=== PATIENT | male | born 1985 | race Caucasian/White ===

== ENCOUNTER 2017-10-27 09:36 | Emergency (ER) | payer OTHER ==
--- NOTE | 2017-10-27 09:42 | EDPHY ---
H & P Time Seen by Provider: 10/27/17 09:38 HPI/ROS: CHIEF COMPLAINT: Possible seizure, possible anxiety HISTORY OF PRESENT ILLNESS: 32-year-old male arrives by ambulance from his place of work where his colleagues described seizure like movements in a patient without history of seizure disorder. The coworkers described the patient was coherent during the entire episode they were able to talk to him. The patient describes feeling lightheaded and then feeling shaking and carpal pedal spasms. 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 He denies fall or head injury. He denies alcohol or drug use. REVIEW OF SYSTEMS: A ten point review of systems was performed and is negative with the exception of the items mentioned in the HPI PAST MEDICAL & SURGICAL HISTORY: no seizure disorder history SOCIAL HISTORY: Nonsmoker no drug or alcohol use FAMILY HISTORY: History intracranial hemangioma PHYSICAL EXAM (Prior to examination, patient consented to physical exam, hands were washed and my usual and customary physical exam procedures followed) 1) GENERAL: Well-developed, well-nourished, alert and oriented. Appears to be in no acute distress. 2) HEAD: Normocephalic, atraumatic 3) HEENT: Pupils equal, round, reactive to light bilaterally. Sclera anicteric. Nasopharynx, oropharynx, clear, no lesions. No signs of trauma. Ears bilaterally with normal tympanic membranes. 4) NECK: Full range of motion, no meningeal signs. 5) LUNGS: Clear auscultation bilaterally, no wheezes, no rhonchi, no retractions. 6) HEART: Regular rate and rhythm, no murmur, no heave, no gallop. 7) ABDOMEN: No guarding, no rebound, no focal tenderness, negative McBurney's, negative Nino's, negative Rovsing's, negative peritoneal sign, 8) MUSCULOSKELETAL: Moving all extremities, no focal areas of tenderness, no obvious trauma. No peripheral edema or discoloration. 9) BACK: No CVA tenderness, no midline vertebral tenderness, no fluctuance, no step-off, no obvious trauma, no visual or palpable abnormality. 10) SKIN: No rash, no petechiae. 11) Psychiatric: Patient is oriented X 3, there is no agitation. 12) NEURO: Awake, alert, and oriented to person, place and time. Answers questions appropriately. There were no obvious focal neurologic abnormalities. No cerebellar dysfunction. Cranial nerves 2 through to 12 intact. Normal steady gait. Upper and lower extremities bilaterally with strength 5 / 5, reflexes 2+. DIFFERENTIAL DIAGNOSIS: In no particular order including but not limited to seizure, acute anxiety, cardiac dysrhythmia Constitutional: Initial Vital Signs Temperature (C) 36.5 C 10/27/17 09:41 Heart Rate 57 L 10/27/17 09:41 Respiratory Rate 16 10/27/17 09:41 Blood Pressure 142/90 H 10/27/17 09:41 O2 Sat (%) 96 10/27/17 09:41 O2 Delivery Mode Room Air Allergies/Adverse Reactions: No Known Allergies Allergy (Unverified 10/27/17 09:41) Home Medications: Medication Instructions Recorded NK [No Known Home Meds] 10/27/17 Medical Decision Making - Diagnostics Imaging Results: Imaging Impressions Head CT 10/27/17 10:21 Impression: There is no acute intracranial abnormality identified on this unenhanced CT evaluation. If there is further clinical concern regarding the patient's symptoms, MR imaging is suggested, if not otherwise contraindicated. Findings were discussed with Glenis Leyva PA-C at 11:02 AM, on 10/27/2017. Images reviewed by myself ED Course/Re-evaluation: Patient was re-evaluated with serial examinations most recently at 11:15 a.m. Discussed his diagnostic results. He was particularly concerned about his CT head noting family history of hemangioma. Discussed limitations of CT imaging. He remains with a nonfocal exam. It is not completely clear whether patient had an acute anxiety attack or possible seizure. I have recommended he follow up with Neurology and have given him this follow-up information and have given him my usual customary seizure precautions instructions including but not limited to, no driving or operating machinery. He feels comfortable with this plan. Feels comfortable being discharged. I do not think that hospitalization isn't indicated at this time. Care of patient under supervision of primary supervising physician Dr Lama. - Data Points Laboratory Results: Laboratory Results 10/27/17 09:50 10/27/17 09:50 02/22/18 02/22/18 09:50 09:50 WBC 9.76 10^3/uL H 10^3/uL (3.80-9.50) RBC 5.90 10^6/uL 10^6/uL (4.40-6.38) Hgb 17.9 g/dL H g/dL (13.7-17.5) Hct 52.2 % H % (40.0-51.0) MCV 88.5 fL fL (81.5-99.8) MCH 30.3 pg pg (27.9-34.1) MCHC 34.3 g/dL g/dL (32.4-36.7) RDW 12.8 % % (11.5-15.2) Plt Count 320 10^3/uL 10^3/uL (150-400) MPV 9.5 fL fL (8.7-11.7) Neut % (Auto) 39.8 % % (39.3-74.2) Lymph % (Auto) 46.6 % H % (15.0-45.0) [place] % (Auto) 6.9 % % (4.5-13.0) Eos % (Auto) 5.4 % % (0.6-7.6) Baso % (Auto) 1.0 % % (0.3-1.7) Nucleat RBC Rel Count 0.0 % % (0.0-0.2) Absolute Neuts (auto) 3.88 10^3/uL 10^3/uL (1.70-6.50) Absolute Lymphs (auto) 4.55 10^3/uL H 10^3/uL (1.00-3.00) Absolute Monos (auto) 0.67 10^3/uL 10^3/uL (0.30-0.80) Absolute Eos (auto) 0.53 10^3/uL H 10^3/uL (0.03-0.40) Absolute Basos (auto) 0.10 10^3/uL 10^3/uL (0.02-0.10) Absolute Nucleated RBC 0.00 10^3/uL 10^3/uL (0-0.01) Immature Gran % 0.3 % % (0.0-1.1) Immature Gran # 0.03 10^3/uL 10^3/uL (0.00-0.10) Sodium 144 mEq/L mEq/L (135-145) Potassium 3.9 mEq/L mEq/L (3.5-5.2) Chloride 106 mEq/L mEq/L (97-110) Carbon Dioxide 20 mEq/l L mEq/l (22-31) Anion Gap 18 mEq/L H mEq/L (8-16) BUN 18 mg/dL mg/dL (7-23) Creatinine 1.2 mg/dL mg/dL (0.7-1.3) Estimated GFR > 60 Glucose 102 mg/dL H mg/dL (70-100) Calcium 10.7 mg/dL H mg/dL (8.5-10.4) Phosphorus 1.3 mg/dL L mg/dL (2.5-4.5) Ethyl Alcohol < 10 mg/dL mg/dL (0-10) Departure - Departure Disposition: Home, Routine, Self-Care Clinical Impression: Possible seizure Condition: Good Instructions: Nonepileptic Seizures (ED), Anxiety (ED) Additional Instructions: You may have had a seizure. Until your cleared by the your neurologist do not: Drive, swim alone, climb to heights, operate machinery Referrals: Robert White MD [Medical Doctor] - 2-3 days, call for appt. (Dr. White is a neurologist)
[2017-10-27 09:44] VITALS: RESP 16
--- NOTE | 2017-10-27 09:57 | CPEKG ---
Heart Rate: 71 RR Interval: 845 P-R Interval: 144 QRSD Interval: 96 QT Interval: 376 QTC Interval: 409 P [place]: 46 QRS [place]: -28 T Wave [place]: 19 EKG Severity - OTHERWISE NORMAL ECG - EKG Impression: SINUS RHYTHM EKG Impression: BORDERLINE LEFT AXIS DEVIATION Electronically Signed By: Antelmo Francis 27-Oct-2017 12:45:54
[2017-10-27 10:05] LABS: PLATELET COUNT 320 10^3/uL (150-400)
[2017-10-27 11:42] VITALS: BP 144/95; PULSE 72; TEMP 96.8; O2SAT 93
== END 2017-10-27 11:40 | disposition home or self-care (01) ==
DX: R25.1 Tremor, unspecified (principal)
CPT/HCPCS: G0480